=== PATIENT | female | born 1940 | race Caucasian/White ===

== ENCOUNTER → 2023-08-23 08:45 | Outpatient (REF) | payer OTHER, SELFPAY | LOC: WDC 08:45 | PROVIDERS: ATTENDING PHYSICIAN Family Medicine | DX: Z12.31 Encounter for screening mammogram for malignant neoplasm of breast (principal) | CPT/HCPCS: 77063; 77067 ==

== ENCOUNTER 2023-10-06 11:15 | Emergency (ER) | payer OTHER, SELFPAY ==
[2023-10-06 11:22] VITALS: BP 98/72
--- NOTE | 2023-10-06 11:35 | ED.GENMED ---
History of Present Illness
General
Chief Complaint: Heart Rate Problem
Time Seen by Provider: 10/06/23 11:35
History of Present Illness
History of Present Illness:
HPI: See note from Dr. Ramirez below. The patient happened to have a office visit with Dr. Dobson today and reported feeling unwell since about yesterday. Of note she did miss a dose of Eliquis 2 to 3 days ago.
EXAM:
GENERAL: Well appearing in no distress�heart rates go up to as high as 189 with narrow complex
HEENT: Moist oral mucosa
CARDIOVASCULAR: No murmurs, tachycardic heart rate, regular rhythm alternating with periods of irregularity, No chest wall tenderness
PULMONARY: No respiratory distress, breath sounds are clear and equal
ABDOMEN: Soft with no peritoneal signs, no tenderness
NEUROLOGIC: Excellent strength all extremities, no coordination deficits
PSYCHIATRIC: Appropriate mental status, normal insight and judgement, appears somewhat anxious
EXTREMITIES: Nontender, no edema, moves all extremities equally
SKIN: No rash, no lesions
TIME OF INITIAL ENCOUNTER: 11:50 AM
NUMBER AND COMPLEXITY OF PROBLEMS ADDRESSED AT THE ENCOUNTER
� Chronic conditions affecting care: High blood pressure, hyperlipidemia
� Acute Exacerbation and/or Progression of Chronic Illness: This is an acute problem
� Differential Diagnosis includes: Rapid atrial fibrillation, MAT, electrolyte abnormality,
AMOUNT AND/OR COMPLEXITY OF DATA TO BE REVIEWED AND ANALYZED
� I performed an independent evaluation of and my interpretation is:
EKG: A-fib with rate of 139
CT:
X-rays:
Laboratory Studies: Normal CBC, Cr 1.1, Gluc 153
Other:
� Review of other/old records: Echo from September 2022 showed an EF of 70 to 75%
� Clinical information was obtained by an independent historian: I reviewed the: Note from Dr. Ramirez. The patient has a history of paroxysmal A-fib, mild hypertension who presented to their office with a general unwell
feeling and palpitations since yesterday. EKG according Dr. Ramirez appeared to be MAT 'but with history of A-fib I wonder if she will progress to A-fib'. She was feeling diaphoretic and dizzy and she came in here by private vehicle
� Prescriptions/Medications Considered but not given:
� Further testing considered but not performed:
RISK OF COMPLICATIONS AND/OR MORBIDITY OR MORTALITY OF PATIENT MANAGEMENT
� Social determinants of health affecting care:
� Discussion with other providers: I spoke to both Dr. Bettencourt and Dr. Galvan are in agreement to have her increase her metoprolol back to 25 mg daily
� Escalation of care including admission/observation vs risk of discharge considered: The patient was given IV Cardizem initially and then she was briefly on Cardizem drip. She converted to a sinus rhythm. Overall she feels
improved. Very well-appearing on reassessment.
Phy Exam
Physical Exam
Physical Exam:
See HPI
Course
Orders/Labs/Results
Orders:
Orders
10/06/23 11:16
ECG [Electrocardiogram (*1)] Urgent
Reason for Study: Palpitations
10/06/23 11:17
EKG- Treatment ONCE
10/06/23 11:48
Diltiazem HCl [Cardizem] 10 mg IV NOW STA
10/06/23 11:50
Complete Blood Count/With Diff Urgent
Comprehensive Metabolic Panel Urgent
Magnesium Urgent
NT-proBNP Urgent
TSH Reflex To Free T4 Urgent
Comment: ADD ON
Troponin I Q6H
10/06/23 12:00
Diltiazem 125 mg/125 ml Nss [Cardizem] 125 mg in 125 ml IV PER PROTOCOL
Initial dose in mg/hr, then titrate:: 5
Titrate to keep:: Heart rate 80-100 bpm
Titrate by mg/hr:: 5 mg/hr
Frequency of titrations (minutes):: 15
Maximum dose in mg/hr:: 15
10/06/23 12:08
Add On- LAB Urgent
Tests Added?: tsh reflex fT4
10/06/23 12:09
Electrocardiogram (*1) Urgent
Reason for Study: Atrial Fibrillation
EKG- Treatment ONCE
Abnormal Lab Results
10/06/23
11:50
MPV 11.1 H fL
(7.4-10.4)
BUN 26 H mg/dl
(7-17)
Creatinine 1.1 H mg/dL
(0.6-1.0)
Glucose 153 H mg/dl
(70-99)
Alkaline Phosphatase 128 H U/L
(38-126)
10/06/23 11:50
10/06/23 11:50
Vital Signs
Initial and Last Documented VS:
Initial Vital Signs
Temp Pulse Resp BP Pulse Ox
97.6 F 178 18 98/72 97
10/06/23 11:22 10/06/23 11:22 10/06/23 11:22 10/06/23 11:22 10/06/23 11:22
Last Documented Vital Signs
Temp Pulse Resp BP Pulse Ox
97.6 F 86 18 120/76 97
10/06/23 11:22 10/06/23 12:09 10/06/23 11:22 10/06/23 12:42 10/06/23 11:22
*Critical Care Note
Total Time (30-74mins, 75-104mins- exclusive of procedures): 40min
comment:
Rapid AFib w/ rates as high as 190. Emergently gave cardizem bolus and drip and she converted to sinus. Closely monitored vitals.
ED Attending Note
-
Portions of this chart may have been created with voice recognition software.� Occasional wrong word or��sound alike� substitutions may have occurred due to the inherent limitations of voice recognition software.
Discharge Plan
Departure
Patient Disposition: Home (Routine Discharge)
Date of Disposition: 10/06/23
Time of Disposition: 12:35
Patient with high blood pressure during this ER visit?: No
Discharge Problem:
Atrial fibrillation with RVR
Instructions: Atrial Fibrillation (DC)
Referrals:
Huong Colon MD [Family Provider] -
Clint Ramirez MD [Active] - Follow up in 2-3 days
Activity Restrictions/Additional Instructions:
You were in rapid atrial fibrillation earlier. We gave you a dose of Cardizem IV and you are briefly on a Cardizem drip. You did convert back to a normal sinus rhythm. I spoke to both Dr. Ramirez and Dr. Patel are recommending to go
back to a full-strength metoprolol 25 mg daily. You could start this tomorrow. Return here if worse. Follow-up with your day spa manager.
Interventions
Interventions:
*Risk Screen - Suicide Last Done: 10/06/23 12:06
*General Assessment Last Done: 10/06/23 11:22
*Neglect/Abuse Screening Last Done: 10/06/23 12:06
ED- Fall Risk Assessment Last Done: 10/06/23 11:35
*ED COVID-19 Vaccine History Last Done: 10/06/23 11:22
*Nursing Disposition Last Done: 10/06/23 12:56
ED- Cardiac Assessment Last Done: 10/06/23 11:35
ED- Pulmonary Assessment Last Done: 10/06/23 11:35
Discharge Date and Time
Discharge Date/Time: 10/06/23 13:08
Print Language: IRISH
[2023-10-06] MEDS: CARDIZEM 10 MG IV (11:56)
[2023-10-06] MEDS: CARDIZEM 125 IV (11:57)
[2023-10-06 11:58] LABS: % Basophils 0.7 % (0-2); % Eosinophils 0.7 % (0-6); % Immature Granulocytes 0.3 % (0-0.5); % Lymphocytes 20.5 % (20.5-51.1); % Monocytes 8.2 % (1.7-9.3); % Neutrophils 69.6 % (42.2-75.2); Absolute Basophils 0.1 10^3/uL (0-0.2); Absolute Eosinophils 0.1 10^3/uL (0-0.7); Absolute Lymphocytes 1.4 10^3/uL (1.2-3.4); Absolute Monocytes 0.6 10^3/uL (0.1-0.6); Absolute Neutrophils 4.9 10^3/uL (1.4-6.5); Hematocrit 44.5 % (37.0-47.0); Hemoglobin 15.2 g/dL (12.0-16.0); Mean Corp Hgb Conc. 34.2 g/dL (33.0-37.0); Mean Corpuscular Hgb 30.6 pg (27.0-31.0); Mean Corpuscular Volume 89.7 fL (81.0-99.0); Mean Platelet Volume 11.1 fL (7.4-10.4); Nucleated Red Blood Cells % 0 %; Platelet Count 235 10^3/uL (130-400); Red Blood Cell Count 4.96 10^6/uL (4.20-5.40); Red Cell Dist. Width 12.7 % (11.5-14.5)
[2023-10-06 12:17] LABS: ALT (SGPT) 34 U/L (0-35); AST (SGOT) 31 U/L (14-36); Albumin 4.6 g/dl (3.5-5.0); Alkaline Phosphatase 128 U/L (38-126); Blood Urea Nitrogen 26 mg/dl (7-17); Calcium 9.7 mg/dl (8.4-10.2); Carbon Dioxide 26 mmol/L (22-30); Chloride 105 mmol/L (98-107); Glucose 153 mg/dl (70-99); Magnesium 1.9 mg/dl (1.6-2.3); Potassium 4.5 mmol/L (3.5-5.1); Sodium 139 mmol/L (135-145); Total Bilirubin 0.8 mg/dl (0.2-1.3); Total Protein 7.7 g/dl (6.3-8.2); eGFR 49.86
[2023-10-06 12:21] LABS: NT-proBNP 505 pg/ml; Troponin I < 0.012 ng/ml
[2023-10-06 12:42] VITALS: BP 120/76
[2023-10-06 13:02] LABS: TSH Reflex To Free T4 2.82 uIU/ml (0.47-4.68)
== END 2023-10-06 13:08 | disposition home or self-care (01) ==
LOC: EMR 11:15
PROVIDERS: EMERGENCY PHYSICIAN Emergency Medicine; FAMILY PHYSICIAN Family Medicine
DX: I48.91 Unspecified atrial fibrillation (principal)
CPT/HCPCS: 99284; 96374; 80053; 83735; 83880; 84443; 84484; 85025; 93005

== ENCOUNTER 2023-12-14 06:04 | Day surgery (SDC) | payer OTHER, SELFPAY ==
[2023-12-09 10:54] VITALS: BMI 34.7
[2023-12-09 11:41] LABS: % Basophils 0.6 % (0-2); % Eosinophils 0.8 % (0-6); % Immature Granulocytes 0.5 % (0-0.5); % Lymphocytes 17.9 % (20.5-51.1); % Monocytes 9.2 % (1.7-9.3); Absolute Eosinophils 0.1 10^3/uL (0-0.7); Absolute Lymphocytes 1.1 10^3/uL (1.2-3.4); Absolute Monocytes 0.6 10^3/uL (0.1-0.6); Absolute Neutrophils 4.4 10^3/uL (1.4-6.5); Hematocrit 40.2 % (37.0-47.0); Hemoglobin 13.6 g/dL (12.0-16.0); Mean Corp Hgb Conc. 33.8 g/dL (33.0-37.0); Mean Corpuscular Volume 88.7 fL (81.0-99.0); Mean Platelet Volume 11.3 fL (7.4-10.4); Nucleated Red Blood Cells % 0 %; Platelet Count 203 10^3/uL (130-400); Red Blood Cell Count 4.53 10^6/uL (4.20-5.40); Red Cell Dist. Width 12.7 % (11.5-14.5); White Blood Cell Count 6.2 10^3/uL (4.8-10.8)
[2023-12-09 12:21] LABS: ALT (SGPT) 35 U/L (0-35); AST (SGOT) 30 U/L (14-36); Albumin 4.7 g/dl (3.5-5.0); Alkaline Phosphatase 113 U/L (38-126); Blood Urea Nitrogen 25 mg/dl (7-17); Calcium 9.8 mg/dl (8.4-10.2); Carbon Dioxide 25 mmol/L (22-30); Chloride 105 mmol/L (98-107); Estimated Creatinine Clearance 51 ml/min; Glucose 121 mg/dl (70-99); Potassium 4.4 mmol/L (3.5-5.1); Sodium 143 mmol/L (135-145); Total Bilirubin 0.8 mg/dl (0.2-1.3); Total Protein 7.5 g/dl (6.3-8.2)
[2023-12-14] VITALS (11 sets, daily range): BP systolic 91–195; BP diastolic 72–101
[2023-12-14 10:02] LABS: ACT-LR - POC 392 Seconds (116-155)
[2023-12-14 10:21] LABS: ACT-LR - POC 311 Seconds (116-155)
[2023-12-14 10:43] LABS: ACT-LR - POC 329 Seconds (116-155)
[2023-12-14 11:01] LABS: ACT-LR - POC 339 Seconds (116-155)
[2023-12-14 11:26] LABS: ACT-LR - POC 334 Seconds (116-155)
[2023-12-14 12:04] LABS: ACT-LR - POC 324 Seconds (116-155)
--- NOTE | 2023-12-14 12:34 | ITS.CL.ABL ---
[employer] Application Developer - Ablation
Ablation
Procedure Report:
AFIB ablation:
Ms. Laws is a very pleasant 83 yr old woman with symptomatic paroxysmal AF and atrial flutters is here for AF/Flutter ablation.
Date of the Procedure:
12/14/2023
Indications:
Paroxysmal atrial fibrillation / Flutter
Pre-Operative Diagnosis:
Paroxysmal atrial fibrillation / Flutter
Post-Operative Diagnosis:
Paroxysmal atrial fibrillation / Flutter
Procedure Performed:
Atrial fibrillation ablation with Pulsed-Field approach for pulmonary vein isolation
Posterior wall isolation
Mitral flutter ablation
Left atrial anterior wall focal tachycardia ablation
Typical atrial flutter ablation with cavo-tricuspid isthmus ablation
Performing Physician:
Myrna Hines MD
Assistants:
EP staff
Anesthesia:
See anesthesia records
Detailed Description of the Procedure:
Written informed consent was obtained from the patient after a full explanation of the risks and benefits of the procedure including the risks of sedation and anesthesia.
The patient was brought to the electrophysiology laboratory in stable condition in fasting state. Continuous electrocardiographic and hemodynamic monitoring was initiated.
The initial rhythm was sinus rhythm and was spontaneously initiated into atrial flutter.
The procedure site was meticulously prepared with surgical scrub and allowed to dry with no pooling. Sterile draping was applied to cover the procedure site. The image intensifier was draped with sterile bag and positioned over the patient. After
infusion of local anesthetic, vascular access was obtained under ultrasound guidance and sheaths were placed over guide wire as detailed below.
Sheath and Catheter Placement:
The following catheters / sheaths were placed
Sheaths:
��������� 17Fr steerable sheath (Xubaadrive�, GoodyTag) in right femoral
��������� 9Fr in right femoral vein
��������� 7Fr in right femoral vein
Catheters:
��������� FLORENTIN HD Grid mapping catheter � at locations of RA, LA
��������� Farawave� PFA catheter
��������� ICE catheter -AcuNav - at locations of RA, SVC, and RV.
��������� Decapolar Bard catheter in RA and CS
Intracardiac ECHO:
An 8-Yemeni AcuNav intracardiac ECHO (ICE) probe was advanced through the 9-Yemeni sheath in the right femoral vein into the right atrium under fluoroscopic and ICE ultrasound image guidance and a baseline ECHO study was performed. The left atrial
size was dilated. There was moderate tricuspid regurgitation. The aortic valve was grossly normal. There was normal left ventricular systolic functions. There is trace pericardial effusion. All the four veins were identified and has flow identified.
There was good flow noted in the PERLA with normal velocities noted on Doppler.
During the procedure, ICE was used for monitoring of complications, guidance of trans-septal puncture, monitor the catheter position and tracking ablation lesions. No change in the pericardial space noted throughout the procedure.
Trans-septal Puncture:
Heparin was initiated and infused to maintain appropriate ACT. A pigtail guidewire was advanced through the 8-Yemeni sheath in the right femoral vein into the superior vena cava under fluoroscopic and ICE guidance. The 9-Yemeni sheath was exchanged
for a Faradrive sheath which was advanced into the superior vena cava. A transseptal RF pigtail via Faradrive connect system was utilized to perform the trans-septal puncture. The apparatus was withdrawn until it was in contact with the fossa
ovalis. The position was adjusted based on fluoroscopy and ultrasound images from ICE. Under fluoroscopic, hemodynamic and ICE ultrasound guidance, left atrium was cannulated by applying RF energy. Once atrial septum was cannulated, the pigtail wire
was advanced through the needle into the left atrium. The guide wire was advanced into the left superior pulmonary vein. Both the sheath and the dilator was advanced into the left atrium. The dilator with the needle was withdrawn. Blood was
aspirated from the Faradrive sheath and arterial blood confirmed. The sheath was flushed. Saline injection noted into the left atrium on ICE. The mapping catheter was advanced in the sheath into the left pulmonary vein. Left atrial pressure was
measured.
3D Electroanatomic Mapping:
Using the HD Grid catheter advanced through sheath into the left atrium, an electroanatomic map (EAM) of the left atrium was created using [employer] mapping system. The map was used for localization of catheter position and tacking of ablation
lesions.
The EAM of the left atrium showed 4 pulmonary veins with all 4 veins electrically connected to the body the LA. It showed no significant areas of scar on the posterior and anterior wall of the LA. The LA was mildly dilated in size.
The flutter degenerated into atrial fibrillaiton.
Following the EAM, preparation were made for ablation.
Ablation:
Ablation # 1: Pulmonary vein Isolation:
Glycopyrrolate 0.2 mg was given prior to the placement of ablation. Using [employer] pulsed wave ablation system, pulmonary vein isolation was achieved. First the ablation catheter was placed in the LSPV and ostial ablation lesions were performed in a
counter clock bradshaw approach all around the PV ostium circumferentially. Then the catheter was placed on the antral location and multiple ablation lesions were placed circumferentially on the antrum of the vein.
In the similar fashion, the LIPV were isolated.
Then the catheter was moved to right sided veins. The ostial and antral ablations were placed as noted above.
Patient remained in atrial fibrillation.
Ablation # 2: Posterior wall isolation:
Using the pulsed field ablation catheter, the catheter was placed on the posterior wall and moved around the posterior wall to have adequate contact and ablations were placed isolating the posterior wall.
The atrial fibrillation organized into atrial flutter/macro reentry atrial tachycardia. Atrial flutter/tachycardia was mapped and was noted to have left anterior wall focus.
Ablation # 3: Focal/Micro-reentry atrial tachycardia ablation:
The tachycardia was fast (380 ms) and entrainment could not be done. The RA was out of the tachycardia circuit. The tachycardia was entrained but was difficult to assess the focal vs re-entry due to intermittent capture of the LA and extensive
scarring. The mapping was done using HD grid showing the origin in the anterior wall of the LA.
The farapulse ablation catheter was moved into a flower shape and placed on origin with focal AT vs micro-rentry AFL. With placement of the ablation, the tachycardia terminated and was again replaced by a different slower flutter at 420 msec.
Ablation # 4: Mitral Flutter ablation:
Using the Farapulse ablation catheter, the ablation cathere was put on the lateral mitral isthmus below the LIPV in �Flower� shape. Ablations were placed on the mitral isthmus and block was achieved.
Ablation # 5: Typical atrial flutter ablation
The tachycardia again changed and was 250 ms cycle length. The left atrium was mapped and was noted to have passively feeling with earliest at the atrial septum. This was consistent with right atrial flutter.� Right atrial entrainment again shows 70
ms out of the tachycardia at the lateral wall.
The CTI isthmus was mapped and entrained. Entrainment from CTI was in the cycle length circuit.� Using farapulse (Jobaline) and deflectable sheath (Xubaadrive), the ablation catheter was placed at the CTI on the lateral side. A 500 mg nitroglycerin
was given and ablation was placed on the CTI.� With ablation tachycardia terminated into normal sinus rhythm.
No sign of ST elevations or coronary spasm noted.
EPS and Confirmation of the PVI and bidirectional block:
Following achievement of entrance block at the pulmonary veins, pacing from the HD catheter in each of the four veins at 10 milliamps for 2 milliseconds showed entrance and exit block. All PVI were rechecked at the end of the case and remained
isolated. Entrance and exit block were demonstrated in all veins.
While mapping, patient went back into atrial flutter /fibrillation.
Mitral Flutter ablation:
The lateral mitral isthmus block was tested and appears to have reconnected and was responsible for generating mitral flutters. The ablated isthmus area was the critical location and catheter placed on that area consistently able to terminate the
tachycardia into sinus rhythm. The tachycardia was easily inducible and was induced and mapped to be mitral flutter.�
Using the Farapulse ablation catheter, the ablation cathere was put on the critical isthmus of the mitral flutter at lateral mitral isthmus below the LIPV in �Flower� shape. Ablations were placed on the mitral isthmus and block was achieved.
Post ablation Electroanatomic mapping:
Once ablation was completed, the EAM of the LA was done again in sinus rhythm with excellent demarcation of LA myocardium and isolated antral tissue. There was extensive scarring of the LA noted consistent with pre-ablation scar.
The PERLA had healthy signals and was not isolated.
Procedure End
ICE study was done again that showed no epicardial accumulation. No complications noted.
Following the completion of the EP study, catheters were removed. Protamine 40 mg was given at the end of the procedure and ACT was checked repeatedly. The sheaths were removed and hemostasis achieved with Figure of 8 and manual compression after
acceptable ACT is achieved.
Left atrial Pressure:
Pre-ablation: Mean LA pressure was 11mmHg
Post-ablation: Mean LA pressure was 17mmHg
Post-ablation: Mean RA pressure was 13mmHg
Estimated Blood loss:
<10 cc
Specimens Removed:
None.
Implants / Devices:
None
Urine output:
None
Packs / Drains/ Tubes:
None
Instrument / Sponge Count Correct:
Yes
Complications of the Procedure:
None
Condition of Patient at Time of Transfer:
Hemodynamically stable with no neurological or vascular compromise.
Summary:
Successful atrial fibrillation ablation with Pulsed Field approach for pulmonary vein isolation, posterior wall isolation, Mitral flutter ablation, Left atrial anterior wall focal tachycardia ablation, typical CTI flutter ablation
Figures from the Procedure:
Figure 1: The electroanatomic mapping (EAM) of the left atrium with bipolar voltage (purple indicates normal electrical activity with hernandez as no myocardial muscle electric activity indicating a line of block or scar.
[2023-12-14] MEDS: ANESTHETIC LOZENGE 1 LOZENGE PO (14:59)
--- NOTE | 2023-12-14 15:58 | W.PN.UPDATE ---
Update Note
Progress Note Update
Pt seen post PFA. Right groin site without ht/bleeding, non tender. OOB ambulating. Post EKG NSR 70s, no acute changes. Resume xarelto tonight and continue other meds as before. Followup at [facility] as scheduled. Home later today if groin site/tele
remain stable.
--- NOTE | 2023-12-14 16:43 | PTCARENOTE ---
Rec'd report on pt from MIRELLA Han. Pt awake, alert, & oriented. Pt denies pain at this time. Pt's HOB elevated 30 degrees. Pt's groin WNL at this time. Pt's daughter at bedside. Will ambulate pt to restroom in 15 mins.
--- NOTE | 2023-12-14 16:56 | PTCARENOTE ---
HOB elevated 45 degees, groin WNL
[2023-12-14] MEDS: TYLENOL 650 MG PO (17:19)
== END 2023-12-14 17:21 | disposition home or self-care (01) ==
LOC: CATH 06:04
PROVIDERS: ATTENDING PHYSICIAN Internal Medicine Cardiovascular Disease; FAMILY PHYSICIAN Family Medicine; OTHER PHYSICIAN Internal Medicine Cardiovascular Disease
DX: I48.0 Paroxysmal atrial fibrillation (principal); I47.19 Other supraventricular tachycardia; I12.9 Hypertensive chronic kidney disease with stage 1 through stage 4 chronic kidney disease, or unspecified chronic kidney disease; N18.30 Chronic kidney disease, stage 3 unspecified; E78.5 Hyperlipidemia, unspecified; E66.9 Obesity, unspecified; Z68.34 Body mass index [BMI] 34.0-34.9, adult; Z85.3 Personal history of malignant neoplasm of breast; Z79.01 Long term (current) use of anticoagulants
CPT/HCPCS: C1732; C1894; C1730; C1892; C1759; C1766; C1733; 36415; 80053; 85025; 85347; 86850; 86900; 86901; 93005; 93655; 93656; 93657

== ENCOUNTER 2023-12-17 18:53 | Emergency (ER) | payer OTHER, SELFPAY ==
[2023-12-17 19:08] VITALS: BP 180/103
--- NOTE | 2023-12-17 19:15 | ED.GENMED ---
ED Provider Triage
<Subhash Martino PA-C - Last Filed: 12/17/23 19:16>
-
Patient seen by provider in Triage?: Seen in Triage
Attestation: A medical screening examination has been initiated by a qualified medical provider. Based on the assessment performed at this time, it has been determined that an emergent medical condition may exist and the patient has been informed
that further medical evaluation and possible additional diagnostic testing may be needed.
HPI: 83-year-old female presenting to the emergency department for evaluation of shortness of breath and chest heaviness that started . Patient had a cardiac ablation here on Wednesday without complication. Presently still noting some slight
heaviness but otherwise no concerns. EKG done in triage nonischemic. Patient hemodynamic stable. Labs and chest x-ray ordered.
GENERAL: Alert , in no apparent distress
EYE: No visual abnormalities.
NECK: Trachea midline
ENT: No visible abnormalities.
LUNGS: No acute respiratory distress
NEUROLOGICAL: Alert and oriented
SKIN: Skin intact. No visible changes.
MUSCULOSKELETAL: Moving extremities normally
PSYCH: Normal and appropriate interaction.
This is a medical evaluation conducted in person to initiate diagnostic evaluation and provide initial therapeutics. Please see further documentation by the treating clinician.
History of Present Illness
<Subhash Martino PA-C - Last Filed: 12/17/23 19:16>
General
Chief Complaint: Chest Pain
Time Seen by Provider: 12/17/23 20:27
<Maurice Romero PA-C - Last Filed: 12/17/23 23:42>
History of Present Illness
History of Present Illness:
83-year-old female presents to the emergency department for evaluation of shortness of breath and chest heaviness that developed earlier today. She is 3 days status post A-fib ablation performed at this hospital. She denies any overt chest pain or
positional pain. No fevers or chills. She states she feels overall weak and has urinary urgency. No nausea or vomiting. She is on Eliquis
Review of Systems
<Maurice Romero PA-C - Last Filed: 12/17/23 23:42>
Review of Systems
Allergies reviewed?: Yes
All Other Systems: ROS reviewed and negative except as documented in HPI and ROS
Phy Exam
<Maurice Romero PA-C - Last Filed: 12/17/23 23:42>
Physical Exam
Physical Exam:
GEN: Well appearing, NAD, WDWN
HEENT: Oral mucosa moist, no scleral icterus
Cardiac: Regular rate and rhythm with occasional extrasystoles, no murmur
Lung: No respiratory distress, no tachypnea, lungs clear to auscultation
MSK: No gross deformity or injuries
Skin: Good color, no pallor or jaundice, no rashes
Neuro: AO x3, moves all extremities freely
Psych: Calm, cooperative
Scores
<Maurice Romero PA-C - Last Filed: 12/17/23 23:42>
Heart Score for Chest Pain Patients
STEMI patient?: No
History: Slightly or Non-Suspicious
ECG: Normal
Age: >/= 65 years
Risk Factors: 1 or 2 Risk Factors
Troponin: </= Normal Limit
Heart Score for Chest Pain Patients: 3
Heart Score Risk: 2.5% MACE over next 6 weeks
Course
<Subhash Martino PA-C - Last Filed: 12/17/23 19:16>
Orders/Labs/Results
Orders:
Orders
12/17/23 18:57
ECG [Electrocardiogram (*1)] Urgent
Reason for Study: Chest Pain
Cardiology Consult: Myrna Hines
12/17/23 18:58
EKG- Treatment ONCE
12/17/23 19:14
CR Chest - 2 Views Urgent
Comment:
Reason For Exam: chest heaviness, SOB, recent ablation
12/17/23 19:21
Complete Blood Count/With Diff Urgent
Comprehensive Metabolic Panel Urgent
Pro-BNP [NT-proBNP] Urgent
Troponin I Urgent
12/17/23 21:53
Troponin I Routine
Urinalysis Reflex To Culture Urgent
Date Specimen was Collected: 12/17/23
Time Specimen was Collected: 21:36
Abnormal Lab Results
12/17/23 12/17/23
19:21 21:53
RBC 3.89 L 10^6/uL
(4.20-5.40)
Hgb 11.9 L g/dL
(12.0-16.0)
Hct 34.6 L %
(37.0-47.0)
MPV 11.2 H fL
(7.4-10.4)
Absolute Monos (auto) 0.9 H 10^3/uL
(0.1-0.6)
Lymphocytes % 19.4 L %
(20.5-51.1)
Monocytes % 11.5 H %
(1.7-9.3)
BUN 23 H mg/dl
(7-17)
Glucose 115 H mg/dl
(70-99)
AST 86 H U/L
(14-36)
ALT 147 H U/L
(0-35)
Troponin I 1.830 H* ng/ml 1.600 H* ng/ml
12/17/23 19:21
12/17/23 19:21
Vital Signs
Initial and Last Documented VS:
Initial Vital Signs
Temp Pulse Resp BP Pulse Ox
98.4 F 80 18 180/103 97
12/17/23 19:08 12/17/23 19:08 12/17/23 19:08 12/17/23 19:08 12/17/23 19:08
Last Documented Vital Signs
Temp Pulse Resp BP Pulse Ox
98.4 F 76 21 180/87 95
12/17/23 19:08 12/17/23 22:30 12/17/23 22:30 12/17/23 22:00 12/17/23 22:18
<Maurice Romero PA-C - Last Filed: 12/17/23 23:42>
Orders/Labs/Results
Orders:
Orders
12/17/23 18:57
ECG [Electrocardiogram (*1)] Urgent
Reason for Study: Chest Pain
Cardiology Consult: Myrna Hines
12/17/23 18:58
EKG- Treatment ONCE
12/17/23 19:14
CR Chest - 2 Views Urgent
Comment:
Reason For Exam: chest heaviness, SOB, recent ablation
12/17/23 19:21
Complete Blood Count/With Diff Urgent
Comprehensive Metabolic Panel Urgent
Pro-BNP [NT-proBNP] Urgent
Troponin I Urgent
12/17/23 21:53
Troponin I Routine
Urinalysis Reflex To Culture Urgent
Date Specimen was Collected: 12/17/23
Time Specimen was Collected: 21:36
Abnormal Lab Results
12/17/23 12/17/23
19:21 21:53
RBC 3.89 L 10^6/uL
(4.20-5.40)
Hgb 11.9 L g/dL
(12.0-16.0)
Hct 34.6 L %
(37.0-47.0)
MPV 11.2 H fL
(7.4-10.4)
Absolute Monos (auto) 0.9 H 10^3/uL
(0.1-0.6)
Lymphocytes % 19.4 L %
(20.5-51.1)
Monocytes % 11.5 H %
(1.7-9.3)
BUN 23 H mg/dl
(7-17)
Glucose 115 H mg/dl
(70-99)
AST 86 H U/L
(14-36)
ALT 147 H U/L
(0-35)
Troponin I 1.830 H* ng/ml 1.600 H* ng/ml
12/17/23 19:21
12/17/23 19:21
Vital Signs
Initial and Last Documented VS:
Initial Vital Signs
Temp Pulse Resp BP Pulse Ox
98.4 F 80 18 180/103 97
12/17/23 19:08 12/17/23 19:08 12/17/23 19:08 12/17/23 19:08 12/17/23 19:08
Last Documented Vital Signs
Temp Pulse Resp BP Pulse Ox
98.4 F 76 21 180/87 95
12/17/23 19:08 12/17/23 22:30 12/17/23 22:30 12/17/23 22:00 12/17/23 22:18
<Maurice Romero PA-C - Last Filed: 12/17/23 23:42>
MDM/Problems Addressed
MDM/Problems Addressed:
Patient remained in normal sinus rhythm with few beats of ectopy while in the ED. Her troponin was markedly elevated however down trended while in the ED suggesting this is all residual from her ablation. She has no clinical findings of
pericarditis and no findings consistent with congestive heart failure. Limited bedside cardiac ultrasound performed by myself shows no evidence for pericardial effusion. Urinalysis obtained due to the patient's reports of generalized weakness and
this was negative. Overall patient reassured, no major abnormal findings here in the ER today. Suitable for discharge home
<Maurice Romero PA-C - Last Filed: 12/17/23 23:42>
*Critical Care Note
Total Time (30-74mins, 75-104mins- exclusive of procedures): Not Applicable
ED Attending Note
<Subhash Martino PA-C - Last Filed: 12/17/23 19:16>
-
Portions of this chart may have been created with voice recognition software.� Occasional wrong word or��sound alike� substitutions may have occurred due to the inherent limitations of voice recognition software.
Discharge Plan
Departure
Patient Disposition: Home (Routine Discharge)
Date of Disposition: 12/17/23
Time of Disposition: 22:41
Patient with high blood pressure during this ER visit?: No
Discharge Problem:
Generalized weakness, Chest tightness
Instructions: Weakness ED
Prescriptions:
No Action
multivitamin Tablet
1 tab PO DAILY
atorvastatin 10 mg Tablet
10 mg PO DAILY
metoprolol succinate 25 mg Tablet Extended Release 24 Hr
12.5 mg PO DAILY
metoprolol succinate 25 mg Tablet Extended Release 24 Hr
25 mg PO HS
losartan 100 mg Tablet
100 mg PO DAILY
cholecalciferol (vitamin D3) [Vitamin D3] 25 mcg (1,000 unit) Tablet
25 mcg PO DAILY
omega 9-waa-ker-fish oil [Fish Oil] 1,200 (144-216) mg Capsule
1 cap PO SUTUTHSA
Eliquis 5 mg Tablet
5 mg PO BID
Referrals:
Huong Colon MD [Family Provider] -
Interventions
Interventions:
*Risk Screen - Suicide Last Done: 12/17/23 19:08
*General Assessment Last Done: 12/17/23 19:08
*Neglect/Abuse Screening Last Done: 12/17/23 19:08
ED- Fall Risk Assessment Last Done: 12/17/23 20:57
*ED COVID-19 Vaccine History Last Done: 12/17/23 19:08
*Nursing Disposition Last Done: 12/17/23 22:48
ED- Cardiac Assessment Last Done: 12/17/23 20:57
Discharge Date and Time
Discharge Date/Time: 12/17/23 22:48
Print Language: [id number]
[2023-12-17 19:37] LABS: % Basophils 0.5 % (0-2); % Eosinophils 2.1 % (0-6); % Immature Granulocytes 0.3 % (0-0.5); % Lymphocytes 19.4 % (20.5-51.1); % Monocytes 11.5 % (1.7-9.3); % Neutrophils 66.2 % (42.2-75.2); Absolute Eosinophils 0.2 10^3/uL (0-0.7); Absolute Lymphocytes 1.5 10^3/uL (1.2-3.4); Absolute Monocytes 0.9 10^3/uL (0.1-0.6); Hematocrit 34.6 % (37.0-47.0); Hemoglobin 11.9 g/dL (12.0-16.0); Mean Corp Hgb Conc. 34.4 g/dL (33.0-37.0); Mean Corpuscular Hgb 30.6 pg (27.0-31.0); Mean Corpuscular Volume 88.9 fL (81.0-99.0); Mean Platelet Volume 11.2 fL (7.4-10.4); Nucleated Red Blood Cells % 0 %; Platelet Count 162 10^3/uL (130-400); Red Blood Cell Count 3.89 10^6/uL (4.20-5.40); Red Cell Dist. Width 13.2 % (11.5-14.5); White Blood Cell Count 7.5 10^3/uL (4.8-10.8)
[2023-12-17 19:56] LABS: ALT (SGPT) 147 U/L (0-35); AST (SGOT) 86 U/L (14-36); Albumin 4.2 g/dl (3.5-5.0); Alkaline Phosphatase 125 U/L (38-126); Blood Urea Nitrogen 23 mg/dl (7-17); Calcium 9.4 mg/dl (8.4-10.2); Carbon Dioxide 27 mmol/L (22-30); Chloride 105 mmol/L (98-107); Glucose 115 mg/dl (70-99); Potassium 4.1 mmol/L (3.5-5.1); Sodium 145 mmol/L (135-145); Total Bilirubin 1.1 mg/dl (0.2-1.3); Total Protein 7.2 g/dl (6.3-8.2); eGFR > 60.00
[2023-12-17 20:15] LABS: NT-proBNP 609 pg/ml
[2023-12-17 20:27] VITALS: BP 185/91
[2023-12-17 20:57] VITALS: BMI 34.6
[2023-12-17 21:50] VITALS: BP 166/95
[2023-12-17 22:00] VITALS: BP 180/87
[2023-12-17 22:10] LABS: Urine Albumin Negative (Neg - Trace); Urine Bilirubin Negative (Negative); Urine Character Clear (Clear); Urine Color Yellow; Urine Glucose Negative (Negative); Urine Ketone Negative (Negative); Urine Leukocyte Negative (Negative); Urine Nitrite Negative (Negative); Urine Occult Blood Negative (Negative); Urine Urobilinogen Negative (Neg - 1+); Urine pH 6.5 (5.0-9.0)
== END 2023-12-17 22:48 | disposition home or self-care (01) ==
LOC: EMR 18:53
PROVIDERS: Emergency Medicine; Physician Assistant; EMERGENCY PHYSICIAN Student in an Organized Health Care Education/Training Program; FAMILY PHYSICIAN Family Medicine
DX: R07.89 Other chest pain (principal); R53.1 Weakness; I48.91 Unspecified atrial fibrillation; Z79.01 Long term (current) use of anticoagulants
CPT/HCPCS: 99283; 71046; 80053; 81003; 83880; 84484; 85025; 93005

== ENCOUNTER → 2024-08-30 12:45 | Outpatient (REF) | payer OTHER, SELFPAY | LOC: WDC 12:45 | PROVIDERS: ATTENDING PHYSICIAN Family Medicine | DX: Z12.31 Encounter for screening mammogram for malignant neoplasm of breast (principal) | CPT/HCPCS: 77063; 77067 ==